=== PATIENT | female | born 1995 | race Hispanic/Latino ===

== ENCOUNTER → 2017-12-21 | Day surgery (SDC) | payer OTHER ==
[~2017-12-21] MED LIST: ACETAMINOPHEN 1000 MG/100 ML IV ONE; BUPIVACAINE 0.25% 30ML SDV INJ ONE; DESFLURANE 240 ML BTL INH ONE; DEXAMETHASONE SOD PHOS INJ 4 MG/ML VIAL ONE; FENTANYL CITRATE/PF 100MCG/2 ML INJ ONE; GLYCOPYRROLATE INJ 1MG/ 5 ML SYR ONE; LIDOCAINE HCL 2% LOCAL INJ 5 ML SDV VIAL INJ ONE; MELOXICAM7.5 MG PO; METOCLOPRAMIDE HCL 10 MG/2ML VIAL ONE; MIDAZOLAM HCL 2 MG/2 ML VIAL ONE; NEOSTIGMINE 5 MG/5ML SYR ONE; ONDANSETRON HCL INJ 2 MG/ML VIAL ONE; PROMETHAZINE HCL (IM) 25 MG/ML VIAL ONE; PROPOFOL IV EMULSION 10 MG/ML 20 ML VIAL ONE
--- NOTE | 2017-12-21 08:38 | Operative Report ---
DATE OF PROCEDURE: December 21, 2017 PREOPERATIVE DIAGNOSES 1. Adenotonsillar hypertrophy. 2. Chronic adenotonsillitis. POSTOPERATIVE DIAGNOSES 1. Adenotonsillar hypertrophy. 2. Chronic adenotonsillitis. PROCEDURE: Tonsillectomy and adenoidectomy. SIGNIFICANT FINDINGS: Tonsils are 3+/3+. Adenoids are moderately hypertrophied and was fibrous. PAINTER DRUM: None. ANESTHESIA: General endotracheal tube anesthesia. SPECIMENS REMOVED: Tonsils (adenoids were coblated). ESTIMATED BLOOD LOSS: Less than 1 mL. COMPLICATIONS: None. INDICATIONS: The patient is a 22-year-old female with 8-year history of frequent throat infections, which manifests as sore throat, fever, odynophagia, as well as goqluhcx-fmqtgezbbehw-xophknoud tonsils. She is a nonsmoker. She has had no previous throat or neck surgery. She has been refractory to maximum medical treatment consisting of multiple courses of antibiotics. On examination, her tonsils are 3+/3+ bilaterally and scarred. She is scheduled for tonsillectomy and adenoidectomy for the treatment of adenotonsillitis, chronic adenotonsillitis, as well as adenotonsillar hypertrophy. The risks and complications of the procedures were thoroughly discussed with the patient, and include infection, bleeding, scarring, failure to improve, need for additional operations, damage to teeth, gums, tongue, and lips, chronic pain, voice changes, numbness of the tongue, inability to taste, scarring of the pharynx resulting in permanent worse nasal obstruction, damage to the eustachian tube orifices causing middle ear fluid and hearing loss, leakage of fluid through the nose when drinking liquids, need for blood transfusions, damage to surrounding nerves, blood vessels, and muscles. She fully understands and gives consent. PROCEDURE: Patient was taken to the operating room and placed supine on the operating table where general anesthesia was achieved through orotracheal intubation. Eyes were taped. Shoulder roll was placed. Head and body were draped. Table was turned 90 degrees with the head towards the surgeon. Елена-Ajit mouth gag was inserted without difficulty and placed in suspension on a Aly stand. There was no evidence of bifid uvula or diastasis of the muscular uvulae or notched hard palate. Red rubber catheters were then inserted into the nose and brought out through the mouth to retract the soft palate. Examination of the nasopharynx revealed the adenoids to be moderately hypertrophied. The left tonsil was grasped with a tonsillar Allis clamp, and was removed with the [employer]throCare Coblator on a setting of 6 on cut mode taking care to stay on the capsule of the tonsil. The right tonsil was removed in the same way. Both tonsillar beds were significantly scarred. There were significant tonsilliths, worse on the right than the left. Hemostasis was obtained with the Coblator on a setting of 3 on coag mode. Following this, the adenoids were then removed with the ArthroCare Coblator on a setting of 8 on cut mode taking care to avoid trauma to the torus tubarius bilaterally. Hemostasis was obtained with the Coblator. Following this, injection with 3 mL of 0.25% plain Marcaine was injected into the free edges of the anterior and posterior tonsillar pillars. Thorough irrigation was then performed. Stomach contents were suctioned with an NG tube. The red rubber catheters and Елена-Ajit mouth gag were then removed without difficulty revealing no trauma to the teeth, gums, tongue, and lips. Patient was awakened in the operating room and taken to the recovery room in good condition. Job#: [id number] MALINDA GARCIA
== END | disposition home or self-care (01) ==
LOC: OR 05:10
PROVIDERS: ATTEND Otolaryngology
DX: J35.03 Chronic tonsillitis and adenoiditis (principal)
CPT/HCPCS: 42821; 81025; 88304; J1100; J2001; J2250; J2405; J2550; J2765; J3490